=== PATIENT | male | born 1980 | race Caucasian/White ===

== ENCOUNTER 2018-01-12 11:17 | Emergency (ER) | payer BC, OTHER ==
[2018-01-12 11:36] VITALS: BP 141/79
[2018-01-12] MEDS ORDERED: Prochlorperazine 10 MG/2 ML SDV IM ONE (12:14)
[2018-01-12] MEDS ORDERED: HYDROmorphone 1 MG/ML Syringe IM ONE (12:14)
[2018-01-12] MEDS ORDERED: diphenhydrAMINE 50 MG/ML SDV IM ONE (12:14)
--- NOTE | 2018-01-12 13:33 | EDM.PDOC ---
ED HPI GENERAL MEDICAL PROBLEM - General Chief Complaint: Headache Stated Complaint: HEADACHE Time Seen by Provider: 01/12/18 12:07 Source of Information: Reports: Patient History Limitations: Reports: No Limitations - History of Present Illness INITIAL COMMENTS - FREE TEXT/NARRATIVE: This patient comes in complaining of a headache for about 2 weeks. He said he has chronic headaches but this is the first time it's lasted for 2 weeks. He was seen in clinic 2 days ago and given an injection. He said he doesn't know what it was the nurse said it was some Toradol. He does have a prescription for some sumatriptan and he said it just didn't work this time. The patient said he doesn't have a clinic doctor to follow-up with but the nurse noted that he is supposed to follow-up in clinic later. Anyway he describes this as a left frontal headache similar to what is had in the past. He said he was given a prescription when he was in assisted up in [place].. He doesn't note any kind of visual changes or weakness and so forth. There hasn't been any kind of head injury recently. Headache Pain Score (Numeric/FACES): 9 - Related Data Allergies Allergy/AdvReac Type Severity Reaction Status Date / Time Penicillins Allergy Unknown Other Verified 01/12/18 11:24 Home Meds: Home Meds SUMAtriptan 100 mg PO ASDIRECTED PRN 08/29/16 [History] Past Medical History HEENT History: Reports: Other (See Below) Other HEENT History: color blind r eye Musculoskeletal History: Reports: Fracture Other Musculoskeletal History: fx thumb Neurological History: Reports: Migraines Psychiatric History: Reports: Anxiety, Depression, PTSD - Infectious Disease History Infectious Disease History: Reports: Chicken Pox Social & Family History - Family History Musculoskeletal: Reports: Other (See Below) Other Musculoskeletal Family History: degenerative disk dx on mothers side - Tobacco Use Smoking Status *Q: Current Every Day Smoker Years of Tobacco use: 30 Packs/Tins Daily: 0.5 Used Tobacco, but Quit: No Second Hand Smoke Exposure: Yes - Caffeine Use Caffeine Use: Reports: Coffee, Soda, Tea - Alcohol Use Days Per Week of Alcohol Use: 0 Number of Drinks Per Day: 2 Total Drinks Per Week: 0 - Recreational Drug Use Recreational Drug Use: Yes Drug Use in Last 12 Months: Yes Recreational Drug Type: Reports: Marijuana/Hashish Recreational Drug Use Frequency: Daily ED ROS GENERAL - Review of Systems Review Of Systems: See Below Constitutional: Reports: No Symptoms HEENT: Reports: No Symptoms Respiratory: Reports: No Symptoms Cardiovascular: Reports: No Symptoms Endocrine: Reports: No Symptoms GI/Abdominal: Reports: No Symptoms : Reports: No Symptoms, Other Musculoskeletal: Reports: Muscle Pain Neurological: Reports: Headache - Physical Exam Exam: See Below Exam Limited By: No Limitations General Appearance: Alert, WD/WN, Mild Distress Eye Exam: Bilateral Eye: EOMI, Normal Inspection, PERRL Throat/Mouth: Normal Inspection Head Exam: Atraumatic Neck: Supple, Non-Tender Respiratory/Chest: Lungs Clear Cardiovascular: Regular Rate, Rhythm Neuro Exam (Abbreviated): Alert, Oriented, CN II-XII Intact, Normal Cognition, Normal Gait Course - Vital Signs Last Recorded V/S: Last Vital Signs Temp 36.4 C 01/12/18 11:43 Pulse 85 01/12/18 11:43 Resp 16 01/12/18 11:43 BP 141/79 H 01/12/18 11:43 Pulse Ox 98 01/12/18 11:43 - Orders/Labs/Meds Meds: Medications Discontinued Medications Generic Name Dose Route Start Last Admin Trade Name Dannyq PRN Reason Stop Dose Admin Diphenhydramine HCl 50 mg 01/12/18 12:14 01/12/18 12:28 Benadryl IM 01/12/18 12:15 50 mg ONETIME ONE Administration Hydromorphone HCl 1 mg 01/12/18 12:14 01/12/18 12:23 Dilaudid IM 01/12/18 12:15 1 mg ONETIME ONE Administration Prochlorperazine Edisylate 10 mg 01/12/18 12:14 01/12/18 12:28 Compazine IM 01/12/18 12:15 10 mg ONETIME ONE Administration - Re-Assessments/Exams Free Text/Narrative Re-Assessment/Exam: 01/12/18 13:32 This patient received an injection of Compazine 10 mg, Benadryl 50 mg and Dilaudid 1 mg IM. On recheck approximately 10 minutes ago he said the headache is diminished but still they're just a little bit. I volunteered to put him in for a follow-up appointment a semi-didn't have a doctor to go to but the nurse tells me are he has follow-up area he did get a work excuse for today Departure - Departure Time of Disposition: 13:32 Disposition: Home, Self-Care 01 Condition: Fair Clinical Impression: Migraine - Discharge Information Referrals: PCP,None [Primary Care Provider] - Additional Instructions: Follow-up in clinic in the near future. Since you were seen in clinic just recently. No driving for at least the next 12 hours due to severe sedation with the medication. If you have more headache in use the sumatriptan. You may also use Tylenol and Motrin.
[2018-01-12] MEDS ORDERED: Dexamethasone 4 MG/ML SDV IM ONE (13:39)
[2018-01-12] MEDS ORDERED: Dexamethasone 4 MG/ML 5 ML MDV IM ONE (14:00)
== END 2018-01-12 14:01 | disposition home or self-care (01) ==
LOC: JP.ED 11:17
DX: G43.909 Migraine, unspecified, not intractable, without status migrainosus (principal); F17.210 Nicotine dependence, cigarettes, uncomplicated; Z88.0 Allergy status to penicillin
CPT/HCPCS: 96372; 99284; J0780; J1100; J1170; J1200

== ENCOUNTER 2018-01-17 09:12 | Emergency (ER) | payer OTHER ==
[2018-01-17 09:32] VITALS: BP 126/70
[2018-01-17] MEDS ORDERED: Diphtheria,Pertussis(Acell),Tetanus Vaccine 0.5 ML SDV IM ONE (09:35)
[2018-01-17] MEDS ORDERED: Lidocaine 1% with EPINEPHrine 1:100,000 50 ML MDV SUBCUT STA (09:38)
[2018-01-17] MEDS ORDERED: Bacitracin Oint 1 GM U/D Packet TOP ONE (09:50)
--- NOTE | 2018-01-17 09:58 | EDM.PDOC ---
ED HPI GENERAL MEDICAL PROBLEM - General Chief Complaint: Skin Complaint Stated Complaint: SLIVER LT HAND Time Seen by Provider: 01/17/18 09:35 Source of Information: Reports: Patient History Limitations: Reports: No Limitations - History of Present Illness INITIAL COMMENTS - FREE TEXT/NARRATIVE: 37 yo male got a piece of wood in his L hand at work just prior to arrival. His boss was able to pull a large splinter out, but Sergio feels that there is still a piece in his left hand. His tetanus is not UTD. Onset: Today Onset Date: 01/17/18 Onset Time: 09:00 Duration: Minutes:, Constant Location: Reports: Upper Extremity, Left Quality: Reports: Sharp (with manipulation only.) Severity: Mild Improves with: Reports: Other (not using the hand) Worsens with: Reports: Movement Context: Reports: Trauma Associated Symptoms: Reports: No Other Symptoms Treatments COMMUNITY DIETITIAN: Reports: Other (see below) (a portion of the splinter removed at work before arrival.) Left Hand Pain Score (Numeric/FACES): 5 - Related Data Allergies Allergy/AdvReac Type Severity Reaction Status Date / Time Penicillins Allergy Unknown Other Verified 01/17/18 09:26 Home Meds: Home Meds SUMAtriptan 100 mg PO ASDIRECTED PRN 08/29/16 [History] Past Medical History HEENT History: Reports: Other (See Below) Other HEENT History: color blind r eye Musculoskeletal History: Reports: Fracture Other Musculoskeletal History: fx thumb Neurological History: Reports: Migraines Psychiatric History: Reports: Anxiety, Depression, PTSD - Infectious Disease History Infectious Disease History: Reports: Chicken Pox Social & Family History - Family History Musculoskeletal: Reports: Other (See Below) Other Musculoskeletal Family History: degenerative disk dx on mothers side - Tobacco Use Smoking Status *Q: Current Every Day Smoker Years of Tobacco use: 30 Packs/Tins Daily: 0.5 Used Tobacco, but Quit: No Second Hand Smoke Exposure: Yes - Caffeine Use Caffeine Use: Reports: Coffee, Soda, Tea - Alcohol Use Days Per Week of Alcohol Use: 0 Number of Drinks Per Day: 2 Total Drinks Per Week: 0 - Recreational Drug Use Recreational Drug Use: Yes Drug Use in Last 12 Months: Yes Recreational Drug Type: Reports: Marijuana/Hashish Recreational Drug Use Frequency: Daily ED ROS GENERAL - Review of Systems Review Of Systems: See Below Constitutional: Reports: No Symptoms Skin: Reports: Wound (L hand) Neurological: Reports: No Symptoms ED EXAM, SKIN/RASH Exam: See Below Exam Limited By: No Limitations General Appearance: Alert, WD/WN, No Apparent Distress Neurological: Alert, Oriented, CN II-XII Intact, Normal Cognition, No Motor/ Sensory Deficits Psychiatric: Normal Affect, Normal Mood Skin: Warm, Dry, Normal Color, No Rash, Wound/Incision (There is a puncture wound to the L hand between the 3rd and 4th fingers, also there is a wound between the 4th and 5th fingers where his boss tried to open up the skin over where Sergio perceived the splinter to still persist. There is no active bleeding at this time. No sign of infection. ) Location, Skin: Upper Extremity, Left Characteristics: Other (puncture wound) Associated features: Tenderness Lymphatic: No Adenopathy ED SKIN PROCEDURES - Foreign Body Removal Indication:: Wooden splinter in L hand. Performing Doctor:: Chandan Grover Foreign Body Other Location Comment:: Wooden splinter L hand Anesthesia Type: Local (2.5 ml of 1% lidocaine with epi) Complications:: No Comments:: I used a #11 blade to open further the wound caused by his employer looking to remove the residual splinter after he had successfully removed about a 1 inch segment of splinter. With a splinter forceps I was able to reach in the enlarged wound and pull out a 1/8 inch wooden splinter about the diameter of a tooth pick. After removal patient felt around and seemed confident that there was no residual FB's in that hand. A dressing was applied per nursing. Adacel given IM per nursing. Course - Vital Signs Last Recorded V/S: Last Vital Signs Temp 36.6 C 01/17/18 09:31 Pulse 77 01/17/18 09:31 Resp 16 01/17/18 09:31 BP 126/70 01/17/18 09:31 Pulse Ox 97 01/17/18 09:31 - Orders/Labs/Meds Orders: Active Orders 24 hr Category Date Time Status Vaccines to be Administered [RC] PER UNIT ROUTINE Care 01/17/18 09:35 Active Meds: Medications Discontinued Medications Generic Name Dose Route Start Last Admin Trade Name Freq PRN Reason Stop Dose Admin Bacitracin 1 dose 01/17/18 09:50 Bacitracin Oint 1 Gm TOP 01/17/18 09:51 ONETIME ONE Diphtheria/Tetanus/Acell Pertussis 0.5 ml 01/17/18 09:35 01/17/18 09:48 Adacel IM 01/17/18 09:36 0.5 ml .ONCE ONE Administration Lidocaine/Epinephrine 5 ml 01/17/18 09:38 01/17/18 09:50 Xylocaine 1% With Epinephrine 1:100,000 SUBCUT 01/17/18 09:39 5 ml NOW STA Administration Departure - Departure Time of Disposition: 10:05 Disposition: Home, Self-Care 01 Condition: Good Clinical Impression: Splinter in skin, H/O retained foreign body fully removed - Discharge Information Referrals: Lydia Garcia MD [Primary Care Provider] - Forms: ED Department Discharge, ED Return to Work/School Form Additional Instructions: Keep wound clean for 72 hrs. Wash wound several times a day with soap and water. Dry. Apply antibiotic ointment and a new dressing. Take acetaminophen as needed for pain relief. Recheck for signs of infection. - My Orders Last 24 Hours: My Active Orders 01/17/18 09:35 Vaccines to be Administered [RC] PER UNIT ROUTINE - Assessment/Plan Last 24 Hours: My Active Orders 01/17/18 09:35 Vaccines to be Administered [RC] PER UNIT ROUTINE
== END 2018-01-17 10:15 | disposition home or self-care (01) ==
LOC: JP.ED 09:12
DX: S60.552A Superficial foreign body of left hand, initial encounter (principal); F17.210 Nicotine dependence, cigarettes, uncomplicated; M79.5 Residual foreign body in soft tissue; Z88.0 Allergy status to penicillin; Z23 Encounter for immunization; W45.8XXA Other foreign body or object entering through skin, initial encounter
CPT/HCPCS: 10120; 90471; 90715; 99283-25

== ENCOUNTER 2020-04-10 06:22 | Day surgery (SDC) | payer OTHER ==
[2020-04-10] MEDS ORDERED: Lidocaine 1% with EPINEPHrine 1:100,000 50 ML MDV ONE (06:52)
[2020-04-10] MEDS ORDERED: Bupivacaine 0.5% 50 ML MDV ONE (06:52)
[2020-04-10] MEDS ORDERED: metroNIDAZOLE/Normal Saline 500 MG in Premix Bag 1 BAG IV ONE (07:00)
[2020-04-10] MEDS ORDERED: Sodium Chloride 0.9% 1,000 ML IV SCH (07:00)
[2020-04-10] MEDS ORDERED: Glycopyrrolate 0.2 MG/ML 5 ML MDV ONE (07:13)
[2020-04-10] MEDS ORDERED: Rocuronium 50 MG/5 ML Vial ONE (07:13)
[2020-04-10] MEDS ORDERED: Propofol 200 MG/20 ML SDV ONE (07:13)
[2020-04-10] MEDS ORDERED: Dexamethasone 4 MG/ML SDV ONE (07:13)
[2020-04-10] MEDS ORDERED: Ondansetron 4 MG/2 ML SDV ONE (07:13)
[2020-04-10] MEDS ORDERED: Neostigmine Methylsulfate 1 MG/ML 5 ML Syringe ONE (07:13)
[2020-04-10] MEDS ORDERED: fentaNYL 250 MCG/5 ML SDV ONE ×2 (07:14→08:03)
[2020-04-10] MEDS ORDERED: Clindamycin Phosphate 900 MG in Sodium Chloride 0.9% 100 ML IV ONE (07:45)
[2020-04-10] MEDS ORDERED: Ropivacaine 40 ML, dexAMETHasone 8 MG, EPINEPHrine 0.4 MG, Sodium Chloride 0.9% 37.6 ML NERVRT SCH ×4 (07:45)
[2020-04-10] MEDS ORDERED: Ketorolac 60 MG/2 ML SDV ONE (08:02)
--- NOTE | 2020-04-10 09:33 | OR ---
DATE OF PROCEDURE: 04/10/2020 SURGEON: Mitchell Banerjee MD PROCEDURE: Bilateral rectus sheath blocks. COMPLICATION: None. RETAIL BUYER: None. RISKS: Risks, benefits, alternatives, and limitations including, but not limited to infection, bleeding, and injury to abdominal structures. The patient understands these risks and wishes to proceed. PROCEDURE IN DETAIL: The patient was placed in supine position. Using the 13 megahertz ultrasound probe, rectus sheath was readily identified. The needle was advanced under direct visualization and a test injection was performed. The injection was in the preperitoneal space. The entire contents were then injected at that time. The other side was then performed in a same manner, same fashion, same technique, in the same sequence, using the same equipment except for different needle and syringe. The patient tolerated the procedure well. Mitchell Banerjee MD /[id number]
--- NOTE | 2020-04-10 09:33 | OR ---
DATE OF PROCEDURE: 04/10/2020 SURGEON: Mitchell Banerjee MD PROCEDURE: Right total extraperitoneal hernia repair. COMPLICATION: None. PRODUCTION LINE: None. PREOPERATIVE DIAGNOSIS: Incarcerated right inguinal hernia, non-strangulated. POSTOPERATIVE DIAGNOSIS: Incarcerated right inguinal hernia, non-strangulated. ANESTHESIA: General. RISKS: Risks, benefits, alternatives, and limitations including, but not limited to infection, bleeding, and injury to testicular structures, fascicular loss/atrophy. In addition, we discussed cardiovascular, respiratory, and other general surgery conditions. PROCEDURE IN DETAIL: The patient was placed in supine position. An infraumbilical linear incision was made. Electrocautery was used to carry down to the rectus sheath. The anterior rectus sheath was then opened with electrocautery, and a muscle spreading rectus technique was performed. A Pean was used to create a preperitoneal space. The balloon was introduced and advanced to the right side of the pubis. This was insufflated with approximately 30 pumps and held for 1 minute. This was under direct visualization. The balloon was removed and the space was insufflated. Two additional 5 mm ports were entered under direct visualization. The procedure was commenced by finding avascular plane on the right side and mobilizing to the medial aspect. The sac was rather large and rather inflamed. The cord structures were identified multiple times and not interacted with in any way, except for identification. Sac was then able to be reduced. Photo was taken of this. Once the sac was reduced, the area was inspected for bleeding, none was noted. A mesh was then cut to size, introduced and unrolled. This was centered slightly above the hernia itself. Once this was then unfolded, the area was inspected for bleeding, none was noted. The air was removed. The abdomen was subsequently deflated while holding the mesh into place. The fascia was then closed with #1 Vicryl interrupted suture. Subcutaneous tissues were closed with 3-0 Vicryl and 4-0 Vicryl in interrupted running fashion. Dermabond was applied. The patient tolerated the procedure well. Mitchell Banerjee MD /[id number]
--- NOTE | 2020-04-10 09:42 | HP ---
REASON FOR CONSULTATION: Right groin pain. HISTORY OF PRESENT ILLNESS: This is a 39-year-old male who was originally seen at the [facility] for right groin pain. He was diagnosed with right inguinal hernia and was scheduled for right inguinal hernia repair. Unfortunately, due to the COVID, the case was delayed. Currently, he has pain which is 1 to 2/10. Modified by active smoking. PAST MEDICAL HISTORY: Chronic headaches, marijuana use, anxiety, depression, nicotine dependence, chronic tonsillitis. SOCIAL HISTORY: He is a current smoker. FAMILY HISTORY: Noncontributory. REVIEW OF SYSTEMS: GENERAL: The patient is doing well. ENT: No recent smoking. RESPIRATORY: Active smoker. CARDIOVASCULAR: No history of chest pain or myocardial infarction. GASTROINTESTINAL: No signs of bowel obstruction. GENITOURINARY: No dysuria. HEMATOLOGY: No abnormal bleeding history. MUSCULOSKELETAL: Degenerative joint disease. PSYCHIATRIC: He does have a history of anxiety. PHYSICAL EXAMINATION: VITAL SIGNS: Stable. HEENT: Pupils equal. NECK: Supple. LUNGS: Clear. CARDIOVASCULAR: Regular rhythm and rate. RESPIRATORY: Lungs clear to auscultation bilaterally. ABDOMEN: Bowel sounds positive. EXTREMITIES: Full range of motion. NEUROLOGIC: Strength 5/5. Oriented x3. PSYCHIATRIC: No gross depression. IMAGING DATA: I did review the imaging in this case. ASSESSMENT: Right inguinal hernia. PLAN: The patient will be scheduled for total extraperitoneal hernia repair, right, possible open with a TAP block, bilaterally. We discussed the risks, benefits, alternatives, and limitations including, but not limited to infection, bleeding, respiratory compromise, myocardial infarction, scarring, recurrent surgery, chronic pain, and rule out pathology. Mitchell Banerjee MD /[id number]
[2020-04-10 10:23] VITALS: BP 142/78; PULSE 64
== END 2020-04-10 10:45 | disposition home or self-care (01) ==
LOC: JP.SDS 06:22
PROVIDERS: ATTEND Surgery
DX: K40.30 Unilateral inguinal hernia, with obstruction, without gangrene, not specified as recurrent (principal); F41.9 Anxiety disorder, unspecified; F32.9 Major depressive disorder, single episode, unspecified; F17.200 Nicotine dependence, unspecified, uncomplicated
CPT/HCPCS: 36415; 49507; 80048; 85027; C1781; J0171; J1100; J1885; J2405; J2704; J2710; J2795; J3010; J3490; J7030; J7050

== ENCOUNTER 2020-09-07 20:35 | Emergency (ER) | payer OTHER ==
[2020-09-07 20:50] VITALS: BP 134/89; PULSE 90
[2020-09-07] MEDS ORDERED: Proparacaine 0.5% Ophth Soln 15 ML Bottle EYEBOTH STA (21:02)
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
== END 2020-09-07 21:43 | disposition home or self-care (01) ==
LOC: JP.ED 20:35
DX: S05.01XA Injury of conjunctiva and corneal abrasion without foreign body, right eye, initial encounter (principal); F17.210 Nicotine dependence, cigarettes, uncomplicated; Z88.0 Allergy status to penicillin; Z88.1 Allergy status to other antibiotic agents; Z91.048 Other nonmedicinal substance allergy status; Z79.82 Long term (current) use of aspirin; W22.8XXA Striking against or struck by other objects, initial encounter
CPT/HCPCS: 99283; A9270